=== PATIENT | male | born 2000 | race Hispanic/Latino ===

== ENCOUNTER 2024-06-08 19:06 | Emergency (ER) | payer OTHER ==
[~2024-06-08] VITALS: Ht 165.1 cm; Wt 66.7 kg
[2024-06-08 19:08] VITALS: PULSE 75; RESP 18; TEMP 98.1
[2024-06-08] MEDS ORDERED: LIDOCAINE HCL 1% 30ML-PF VIAL ONE (19:25)
[2024-06-08] MEDS ORDERED: LIDOCAINE HCL 1% LOCAL INJ 20 ML VIAL INJ ONE ×2 (19:30)
[2024-06-08] MEDS: DIPHTH,PERTUSS(ACELL),TET VAC 0.5 ML SYRINGE IM ONE (20:55)
[2024-06-08 21:08] VITALS: BP 114/76; PULSE 74; RESP 18; TEMP 98.1; O2SAT 100
== END 2024-06-08 21:08 | disposition home or self-care (01) ==
LOC: FSED 19:08
DX: S02.32XA Fracture of orbital floor, left side, initial encounter for closed fracture (principal); S02.2XXA Fracture of nasal bones, initial encounter for closed fracture; S01.112A Laceration without foreign body of left eyelid and periocular area, initial encounter; W21.11XA Struck by baseball bat, initial encounter; Y93.64 Activity, baseball; Y92.320 Baseball field as the place of occurrence of the external cause; J44.9 Chronic obstructive pulmonary disease, unspecified
CPT/HCPCS: 12014; 70486; 90471; 90714; 99283; J2003